=== PATIENT | female | born 1995 | race Caucasian/White ===

== ENCOUNTER 2020-12-03 08:24 | Day surgery (SDC) | payer OTHER ==
[2020-12-01 17:29] VITALS: BMI 21.7
[2020-12-03] MEDS ORDERED: MIDAZOLAM HCL 2 MG/2 ML SINGLE DOSE VIAL ONE (10:16)
[2020-12-03] MEDS ORDERED: DEXAMETHASONE SOD PHOSPHATE 4 MG/1 ML VIAL ONE (10:16)
[2020-12-03] MEDS ORDERED: PROPOFOL 20 ML ONE (10:16)
[2020-12-03] MEDS ORDERED: ONDANSETRON 4 MG/2 ML VIAL ONE (10:16)
[2020-12-03] MEDS ORDERED: LIDOCAINE HCL/PF 2% SDV 5ML VIAL ONE (10:16)
[2020-12-03] MEDS ORDERED: SCOPOLAMINE HYDROBROMIDE 1 PATCH PATCH.TD72 ONE (10:21)
[2020-12-03] MEDS ORDERED: ceFAZolin SODIUM 1 GM VIAL ONE (10:35)
[2020-12-03] MEDS ORDERED: ceFAZolin SODIUM 1 GM VIAL IVPB ONE (10:36)
[2020-12-03] MEDS ORDERED: oxyCODONE HCL 5 MG TABLET PO PRN (11:19)
[2020-12-03] MEDS ORDERED: ONDANSETRON 4 MG/2 ML VIAL IVPUSH PRN (11:19)
[2020-12-03] MEDS ORDERED: LACTATED RINGERS SOLUTION 1,000 ML IV SCH (11:30)
[2020-12-03] MEDS ORDERED: BUPIVACAINE HCL/PF 0.5% (5MG/ML) 10 ML VIAL IJ ONE (11:31)
[2020-12-03 13:22] VITALS: PULSE 79
[2020-12-03 16:09] VITALS: BP 120/75; TEMP 97.9
== END 2020-12-03 12:50 | disposition home or self-care (01) ==
LOC: FASU 08:24
PROVIDERS: ATTEND Orthopaedic Surgery Hand Surgery
PROC: 01Q40ZZ Repair Ulnar Nerve, Open Approach (ICD-10-PCS; principal; 2020-12-03 10:00)
DX: S64.32XA Injury of digital nerve of left thumb, initial encounter (principal); X58.XXXA Exposure to other specified factors, initial encounter; Y93.9 Activity, unspecified; Y92.9 Unspecified place or not applicable
CPT/HCPCS: 84703; 94760